=== PATIENT | male | born 1955 ===

== ENCOUNTER 2017-11-16 06:33 | Inpatient (IN) | payer BC ==
[2017-10-24 12:51] VITALS: BMI 29.0
--- NOTE | 2017-10-24 13:25 | PAT Medication Instructions ---
Service Date Oct 24, 2017. Current Home Medication List Acetaminophen (Tylenol), 2 TAB PO Q6 PRN for Pain Aspirin (Aspirin Ec), 81 MG PO QAM Atenolol/Chlorthalidone (Tenoretic 50 Mg/25 Mg), 1 TAB PO QAM Cyanocobalamin (Vitamin B-12), 1,000 MCG PO QAM Fish Oil ([place]-3), 1 CAP PO QAM Ibuprofen (Motrin), 600 MG PO Q6H PRN for Pain Multivitamin (Multivitamin), 1 TAB PO QAM Potassium (Potassium), 1 TAB PO QAM Medication Instructions For Your Scheduled Surgery - Check with surgeon for instructions: Ibuprofen (Motrin), 600 MG PO Q6H PRN for Pain - Hold the following medications 2 weeks prior to surgery: Fish Oil ([place]-3), 1 CAP PO QAM - Hold the following medications the morning of surgery: Cyanocobalamin (Vitamin B-12), 1,000 MCG PO QAM Multivitamin (Multivitamin), 1 TAB PO QAM Potassium (Potassium), 1 TAB PO QAM - Take the following medications the morning of surgery with a sip of water: Atenolol/Chlorthalidone (Tenoretic 50 Mg/25 Mg), 1 TAB PO QAM Acetaminophen (Tylenol), 2 TAB PO Q6 PRN for Pain (okay to take up to 4 hours prior to surgery if needed) Aspirin (Aspirin Ec), 81 MG PO QAM If you have any questions please call us at [phone] or [phone] or [phone]
[2017-10-24 14:21] LABS: BASO % 0.7 %; BASO ABS # 0.05 K/uL (0-0.2); EOS % 1.7 %; EOS ABS # 0.12 K/uL (0-0.5); HEMATOCRIT 40.7 % (42-52); HEMOGLOBIN 14.8 g/dL (14.0-18.0); IG# 0.01 K/uL (0.00-0.02); LYMPH % 22.1 %; LYMPH ABS # 1.55 K/uL (1.2-3.4); MEAN CELL VOLUME 85.3 fL (80-100); MEAN CORPUSCULAR HGB CONC 36.4 g/dl (32-36); MEAN PLATELET VOLUME 10.7 fL (7.4-10.4); MONO % 7.3 %; MONO ABS # 0.51 K/uL (0.11-0.59); NEUT % 68.1 %; NEUT ABS # 4.77 K/uL (1.4-6.5); PLATELET COUNT 239 K/uL (130-400); RED CELL DISTRIBUTION WIDTH CV 12.8 % (11.5-14.5); RED CELL DISTRIBUTION WIDTH SD 39.3 fL (36.4-46.3); WHITE BLOOD COUNT 7.01 K/uL (4.8-10.8)
--- NOTE | 2017-10-24 14:28 | DIAGNOSTIC IMAGING REPORT ---
CHEST 2 VIEWS ROUTINE CLINICAL HISTORY: Preoperative chest COMPARISON STUDY: No previous studies for comparison. FINDINGS: The cardiac and mediastinal contours are normal. There is no evidence of focal pulmonary consolidation. There is no evidence of failure. No pleural effusions are visualized.[ There is an azygos fissure. IMPRESSION: No active disease in the chest. Electronically signed by: Vijay Monson M.D. 10/24/2017 2:27 PM Dictated Date/Time: 10/24/2017 2:27 PM
[2017-10-24 14:32] LABS: CREATININE 1.06 mg/dl (0.60-1.40); POTASSIUM 3.2 mmol/L (3.5-5.1)
[~2017-11-16] VITALS: Ht 190.5 cm; Wt 107.9 kg
[2017-11-16] VITALS (10 sets, daily range): BP systolic 120–162; BP diastolic 72–91; PULSE 59–84; TEMP 36.4–37.2; O2SAT 95–100; Ht 190.5 cm; Wt 107.9 kg
[~2017-11-16 06:33] MED LIST: ACET-1256 PO; ASPI81TA28 PO; ATEN-171 PO; CEFAZOLIN 2000MG IV PUSH 10 ML IV SCH; CYAN10005 PO; IBUP600T44 PO; LACTATED RINGER'S 1000ML 1,000 ML IV SCH; MULT-506 PO; OMEG10007 PO; POTA99TA PO
[2017-11-16] MEDS ORDERED: DEXAMETHASONE SOD INJ 4 MG/ML VIAL ONE (08:17)
[2017-11-16] MEDS ORDERED: LIDOCAINE HCL 2% 2 ML VIAL (20MG/ML) ONE (08:17)
[2017-11-16] MEDS ORDERED: ONDANSETRON INJ 2 MG/ML 2 ML VIAL ONE (08:17)
[2017-11-16] MEDS ORDERED: NEOSTIGMINE METHYLSULFATE 1 MG/ML 10ML VIAL ONE (08:17)
[2017-11-16] MEDS ORDERED: PROPOFOL IV EMULSION 10 MG/ML 20 ML VIAL IV ONE (08:17)
[2017-11-16] MEDS ORDERED: GLYCOPYRROLATE INJ 0.2 MG/ML VIAL ONE (08:17)
[2017-11-16] MEDS ORDERED: MIDAZOLAM HCL 1 MG/ML 2ML VIAL ONE (08:17)
[2017-11-16] MEDS ORDERED: FENTANYL CITRATE INJ 50 MCG/1 ML 2 ML VIAL ONE (08:17)
--- NOTE | 2017-11-16 08:41 | History & Physical Bridge Note ---
H&P Re-Evaluation Bridge Note: I have examined the patient, reviewed the History & Physical and in the interval since the performance of the History & Physical I have noted the following changes of clinical significance: No changes noted
--- NOTE | 2017-11-16 08:42 | History and Physical ---
History & Physical Date Nov 16, 2017. Chief Complaint Back and leg pain History of Present Illness The patient is a 62 year old male with complaints of back and leg pain Additional History Hepatic Disease: No Endocrine Disorder: No Kidney Disease: No Hypertension: Yes Heart Disease: No Bleeding Tendencies: No Infectious Diseases: No Allergies Coded Allergies: No Known Allergies (Unverified , 11/16/17) Home Medications Scheduled Aspirin (Aspirin Ec), 81 MG PO QAM Atenolol/Chlorthalidone (Tenoretic 50 Mg/25 Mg), 1 TAB PO QAM Cyanocobalamin (Vitamin B-12), 1,000 MCG PO QAM Fish Oil ([place]-3), 1 CAP PO QAM Multivitamin (Multivitamin), 1 TAB PO QAM Potassium (Potassium), 1 TAB PO QAM Scheduled PRN Acetaminophen (Tylenol), 2 TAB PO Q6 PRN for Pain Ibuprofen (Motrin), 600 MG PO Q6H PRN for Pain Physical Examination Skin: warm/dry, no rash Eyes: normal inspection, EOMI, sclerae normal ENT: normal ENT inspection, pharynx normal Head: normocephalic, atraumatic Neck: supple, no adenopathy, trachea midline Respiratory/Chest: lungs clear, normal breath sounds, no respiratory distress Cardiovascular: regular rate, rhythm, no edema, no murmur Abdomen / GI: normal bowel sounds, non tender Back: normal inspection Extremities: normal inspection, normal range of motion Neurologic/Psych: no motor/sensory deficits, alert, normal reflexes, oriented x 3 Diagnosis Lumbar spinal stenosis Plan of Treatment L3 4 L4 5 lumbar decompression and fusion
[2017-11-16] MEDS ORDERED: BACITRACIN 50000 UNIT VIAL ONE (08:59)
[2017-11-16] MEDS ORDERED: BUPIVACAINE/EPINEPHRINE 0.25% 1:200,000 30 ML VIAL ONE (09:00)
[2017-11-16] MEDS ORDERED: ATROPINE SULFATE 0.1 MG/ML 5ML SYR IV PRN (09:15)
[2017-11-16] MEDS ORDERED: LABETALOL HCL IV 5 MG/ML 20ML IV PRN (09:15)
[2017-11-16] MEDS ORDERED: HYDROmorphone INJ 2 MG/ML SYR/VIAL IV PRN (09:15)
[2017-11-16] MEDS ORDERED: ONDANSETRON INJ 2 MG/ML 2 ML VIAL IV PRN ×2 (09:15→11:45)
[2017-11-16] MEDS ORDERED: HYDROmorphone INJ 2 MG/ML SYR/VIAL ONE (10:01)
[2017-11-16] MEDS ORDERED: ROCURONIUM BROMIDE 10 MG/ML 5 ML VIAL IV ONE (10:02)
[2017-11-16] MEDS ORDERED: FLOSEAL HEMOSTATIC MATRIX 10ML TOP ONE (11:33)
[2017-11-16] MEDS ORDERED: SODIUM CHLORIDE 0.9% 1000ML 1,000 ML IV SCH (11:38)
--- NOTE | 2017-11-16 11:38 | [facility] Operative Report ---
Operative Report Operative Date Nov 16, 2017. Pre-Operative Diagnosis Lumbar spinal stenosis Post-Operative Diagnosis same as preop Procedure(s) Performed #1 lumbar decompression medial facetectomies foraminotomies L3 4 L4 5. #2 posterior spinal fusion L3 4 L4 5. #3 placement posterior segmental transportation L3 4 L4 5. #4 interbody fusion L3 4 L4 5. #5 placement peek Cage 14 x 26 mm at L3 4 and L4 5. #6 placement locally harvested morcellized autograft in the posterior lateral gutters. #7 placement infuse collagen sponge commode Master graft in the posterior gutters and ostial amp bone graft in the interbody spaces. Surgeon Dr. Penaloza Contestant Coordinator Surgeon(s) Alexander Robledo PA-C Findings Severe spinal stenosis Specimens none Description of Procedure Patient was met with preoperatively case discussed all questions addressed. After informed consent obtained patient was taken back to the operative suite underwent intubation placed in a prone position the Alexys table on top of the Trevor frame. All bony prominences well-padded eyes inspected to ensure no external pressure placed upon them. This point the lumbar spine is prepped and draped in normal sterile fashion. Sharp dissection with the assistance of Bovie cautery was performed onto an exposing the lamina and transverse processes of L3 L4-L5 bilaterally. From a caudal to cephalad fashion complete laminectomy of L4 and L3 was performed addressing severe lateral recess and foraminal disease. Pedicle screws then placed in L3 L4-L5 bilaterally with assistance of fluoroscopy and the probably size gage placed. Through a trans- foraminal approach on the right a complete discectomy of L4 5 was performed and plate created to subcortical bleeding bone and a 14 x 26 mm peek cage filled with ostial amp bone graft tapped in position. Then proceeded L3 40 again through a transforaminal approach a right complete discectomy performed and plate created to subcortical bleeding bone and a 14 x 26 mm peek cage filled with ostial amp bone graft tapped in position. The rods were then locked and final position bilaterally. The transverse processes of L3 L4-L5 burred to subcortical bleeding bone. Infuse collagen sponge mask graft locally harvested morcellized autograft placed in the posterior lateral gutters. 15 round LOC drain inserted. Incision then closed with 1 Vicryl fascia 2-0 Vicryl subcutaneous tediously 4 Monocryl for Desiree closure Steri-Strips sterile dressings placed. Patient we can take PACU stable condition. Please note Zander record present at the entire procedure involved in patient positioning complex portions of the surgery and final skin closure. I attest to the content of the Intraoperative Record and any orders documented therein. Any exceptions are noted below.
--- NOTE | 2017-11-16 11:43 | DIAGNOSTIC IMAGING REPORT ---
LUMBAR SPINE 2 OR 3 VIEW CLINICAL HISTORY: L3-L5 lumbar decompression and fusion. COMPARISON STUDY: No previous studies for comparison. Fluoroscopy time: 23.9 seconds. FINDINGS: 2 fluoroscopic images demonstrate L3-L4 and L4-L5 discectomies with interbody spacer placement. There is a posterior decompression. There are bilateral pedicle screws at the L3, L4 and L5 levels with interconnecting rods. Hardware is intact. IMPRESSION: Fluoroscopic images demonstrating L3-L4 and L4-L5 discectomies with L3-L5 bilateral pedicle screw fusion. Electronically signed by: Byron Pugh M.D. 11/16/2017 11:42 AM Dictated Date/Time: 11/16/2017 11:40 AM
[2017-11-16] MEDS ORDERED: LORAZEPAM INJ 0.5 MG in SYRINGE 0 ML IV PRN (11:45)
[2017-11-16] MEDS ORDERED: DO NOT ADMINISTER PNEUMOCOCCAL VACCINE PRN (11:45)
[2017-11-16] MEDS ORDERED: ALUMINUM/MAGNESIUM SUSP 30 ML UDC PO PRN (11:45)
[2017-11-16] MEDS ORDERED: PROMETHAZINE HCL INJ 12.5 MG in SODIUM CHLORIDE 0.9% 50ML 50 ML IV PRN (11:45)
[2017-11-16] MEDS ORDERED: FAMOTIDINE 20 MG TAB PO PRN (11:45)
[2017-11-16] MEDS ORDERED: hydrOXYzine HCL 25 MG TAB PO PRN (11:45)
[2017-11-16] MEDS ORDERED: ACETAMINOPHEN 500 MG TAB PO PRN ×2 (11:45)
[2017-11-16] MEDS ORDERED: METOCLOPRAMIDE HCL INJ 5 MG/ML 2 ML VIAL IV PRN (11:45)
[2017-11-16] MEDS ORDERED: LORAZEPAM 0.5 MG TAB PO PRN (11:45)
[2017-11-16] MEDS ORDERED: NALOXONE HCL 0.4 MG/1 ML VIAL/CARP IV PRN ×2 (11:45)
[2017-11-16] MEDS ORDERED: MAGNESIUM HYDROXIDE SUSP 30 ML UDC PO PRN (11:45)
[2017-11-16] MEDS ORDERED: BISACODYL 10 MG SUPP PR PRN (11:45)
[2017-11-16] MEDS ORDERED: DO NOT ADMINISTER FLU VACCINE PRN (11:45)
[2017-11-16] MEDS ORDERED: SOD PHOSPHATE/SOD BIPHOSPHATE ENEMA 132 ML BTL PR PRN (11:45)
[2017-11-16] MEDS ORDERED: ACETAMINOPHEN IV 100 ML IV PRN (11:45)
[2017-11-16] MEDS ORDERED: HYDROmorphone HCL 0.5MG/ML 50 ML CASSETTE ONE (12:02)
--- NOTE | 2017-11-16 14:29 | Anesthesiology Progress Note ---
Anesthesia Post Op Note Date & Time Nov 16, 2017 at 14:29 Vital Signs Vital Signs Past 12 Hours Date Time Temp Pulse Resp B/P (MAP) Pulse Ox O2 Delivery O2 Flow Rate FiO2 11/16/17 13:45 36.4 59 16 128/82 (97) 98 Nasal Cannula 4.0 11/16/17 13:15 74 16 155/82 (106) 98 4.0 11/16/17 12:45 Nasal Cannula 4.0 11/16/17 12:45 98 Nasal Cannula 4.0 11/16/17 12:45 36.9 69 16 146/80 (102) 98 Nasal Cannula 4.0 11/16/17 12:35 36.3 69 18 149/83 98 Nasal Cannula 4 11/16/17 12:25 64 12 127/67 98 Nasal Cannula 4 11/16/17 12:15 59 10 127/67 98 Oxymask 10 11/16/17 12:05 62 18 122/68 98 Oxymask 10 11/16/17 11:58 36.7 67 16 123/62 98 Oxymask 10 11/16/17 07:01 36.9 64 18 155/91 99 Room Air Notes Mental Status: alert / awake / arousable, participated in evaluation Pt Amnestic to Procedure: Yes Nausea / Vomiting: adequately controlled Pain: adequately controlled Airway Patency, RR, SpO2: stable & adequate BP & HR: stable & adequate Hydration State: stable & adequate Anesthetic Complications: no major complications apparent
[2017-11-16] MEDS: HYDROmorphone HCL 0.5MG/ML 50 ML CASSETTE IV PRN ×2 (14:54→23:16)
[2017-11-16] MEDS: SODIUM CHLORIDE 0.9% 1000ML 1,000 ML IV SCH ×2 (16:03→20:10)
[2017-11-16] MEDS ORDERED: NURSING DECISION MEDICATION ORDER SCH (17:00)
[2017-11-16] MEDS: CEFAZOLIN IV 2,000 MG in SYRINGE 0 ML IV SCH (17:52)
[2017-11-16] MEDS ORDERED: COUGH DROP (SUGAR FREE) LOZ 24 LOZ/1 BOX PO PRN (18:00)
[2017-11-16] MEDS: DOCUSATE SODIUM/SENNA 50/8.6MG TAB PO SCH (20:39)
[2017-11-17] MEDS: CEFAZOLIN IV 2,000 MG in SYRINGE 0 ML IV SCH (00:43)
[2017-11-17] MEDS: SODIUM CHLORIDE 0.9% 1000ML 1,000 ML IV SCH (02:15)
[2017-11-17 04:09] VITALS: BP 136/69; PULSE 77; TEMP 36.8; O2SAT 96
[2017-11-17] MEDS ORDERED: HYDROmorphone INJ 1 MG/ML SYR IV PRN (06:00)
[2017-11-17] MEDS ORDERED: DC PCA ONE (06:00)
[2017-11-17] MEDS ORDERED: NURSING DECISION MEDICATION ORDER SCH ×2 (07:00→12:00)
[2017-11-17] MEDS: OXYCODONE HCL IR 5 MG TAB (IMMEDIATE RELEASE) PO PRN ×4 (07:04→22:06)
[2017-11-17 07:16] LABS: BASO % 0.1 %; BASO ABS # 0.02 K/uL (0-0.2); EOS % 0.2 %; EOS ABS # 0.03 K/uL (0-0.5); HEMATOCRIT 34.5 % (42-52); HEMOGLOBIN 12.3 g/dL (14.0-18.0); IG# 0.04 K/uL (0.00-0.02); LYMPH % 10.2 %; LYMPH ABS # 1.38 K/uL (1.2-3.4); MEAN CORPUSCULAR HEMOGLOBIN 30.7 pg (25-34); MEAN CORPUSCULAR HGB CONC 35.7 g/dl (32-36); MEAN PLATELET VOLUME 10.2 fL (7.4-10.4); MONO % 10.1 %; MONO ABS # 1.36 K/uL (0.11-0.59); NEUT % 79.1 %; NEUT ABS # 10.67 K/uL (1.4-6.5); PLATELET COUNT 185 K/uL (130-400); RED CELL DISTRIBUTION WIDTH SD 40.9 fL (36.4-46.3)
[2017-11-17 07:20] VITALS: BP 160/73; PULSE 79; TEMP 36.7; O2SAT 98
[2017-11-17 07:45] LABS: CALCIUM 8.1 mg/dl (8.5-10.1); CREATININE 0.86 mg/dl (0.60-1.40); POTASSIUM 2.7 mmol/L (3.5-5.1)
[2017-11-17] MEDS ORDERED: NON-FORMULARY MEDICATION (Potassium 1 TAB) PO SCH (09:00)
[2017-11-17] MEDS: ASPIRIN 81 MG ECTAB PO SCH (09:02)
[2017-11-17] MEDS: CHLORTHALIDONE 25 MG TAB PO SCH (09:03)
[2017-11-17] MEDS ORDERED: COUGH DROP (SUGAR FREE) LOZ 24 LOZ/1 BOX PO PRN (12:30)
[2017-11-17] MEDS ORDERED: RXC5 PO (13:09)
--- NOTE | 2017-11-17 13:09 | Discharge Instructions ---
Discharge Instructions Date of Service Nov 17, 2017. Admission Reason for Admission: Spinal Stenosis Discharge Discharge Diagnosis / Problem: lumbar stenosis Discharge Goals Goal(s): Improve function Activity Recommendations Activity Limitations: per Instructions/Follow-up section . Instructions / Follow-Up Instructions / Follow-Up ACTIVITY RECOMMENDATIONS: SELF CARE INSTRUCTIONS AFTER THORACIC/LUMBAR FUSIONS 1. You may walk to your tolerance. It is good exercise for your legs and back. Expect some back and intermittent leg aches and pains. 2. You may perform "counter-top" level activities (make a sandwich, neetu with a project, etc.). 3. No bending or lifting of more than 10 pounds or back twisting of any nature (roll like a log when turning in bed). 4. You may ride in a car for 20-30 minutes at a time. No driving until after your first visit with your doctor. 5. Frequent changes of position and restricting sitting to 30 minutes at a time will help limit the amount of back spasms and stiffness you may experience. 6. You may discontinue the use of ambulatory aids (cane, crutches, etc.) once your strength and confidence allow. 7. You may balance and hairspring assembler the shower and let water strike your incision when you arrive home at least once daily. Do not take a tub bath, sit in a hot tub or go into a swimming pool until after your first recheck in the office. SPECIAL CARE INSTRUCTIONS: VERY IMPORTANT TO READ AND REVIEW A. Your surgical incision has been closed with a cosmetic suture under the skin that will dissolve in about 6 weeks. In 14 days, you can use a pair of clean scissors and cut the suture that is left outside of the skin at the ends of your incision. 1. The small skin tapes can be removed 7 days after surgery if they have not fallen off by that point. 2. You may keep the wound open to air as much as possible to promote healing after post-op day number 5 unless told otherwise by your doctor. 3. If you think the wound looks like it is becoming infected (redness or worsening drainage) and/or you are experiencing fever, chill or worsening back pain and muscle spasms, contact the office so that we may evaluate you as soon as possible. B. Complications are uncommon, but please contact us if you have any signs or symptoms of: 1. wound infection (fever higher than 102.5 degrees F, redness, separation of wound, drainage, or increasing pain from the incision) 2. blood clots in legs (pain, swelling, redness and warmth in legs) 3. urinary tract infection (fever higher than 102.5 degrees F, burning upon urination or increased frequency of urination) 4. nerve problems (inability to walk on your toes or heels, numbness, loss of bowel or bladder control) 5. any other symptoms that concern you C. Please call the office at if you have any concerns or questions about your operation or recovery. D. No smoking! Smoking drastically decreases the chance of a solid fusion. E. Do not take any anti-inflammatory medications (Indocin, Advil, Motrin, Aspirin, Naprosyn, etc.) as these may inhibit the chance of a solid fusion. Tylenol is okay to take for pain. MANAGING PAIN AFTER SPINAL SURGERY 1. Narcotic medication is intended for short-term use and will be provided for surgical pain. Surgical pain usually lasts for a period of 4-6 weeks. Narcotic medication includes Percocet, Vicodin, Darvocet, Tylenol #3 or Lortab. 2. Longer-term pain is more appropriately treated with non-narcotic medication such as Tylenol ES. 3. Muscle spasm is not appropriately treated with narcotics. Muscle relaxers such as Soma, Flexeril or Skelaxin can be used along with Tylenol ES. 4. Remember that we all live with some "aches and pains". This is not unusual or uncommon after an injury or as we get older. a. Back pain is expected and may include muscle spasms for 4 to 6 weeks after surgery. The pain should gradually improve. If the pain worsens for no apparent reason, please contact the office. b. Intermittent leg pain may also be experienced and should not be concerned about unless it worsens for no apparent reason. If so, please contact the office. 5. We will provide appropriate medication within the normal guidelines of their prescribed use. We will also be very cautious and aware of potential abuse and extended duration of patients' medication needs. a. Pain medications are for your comfort and to assist with sleep and rest so that the tissue can heal. They are not provided in order to return to normal activity and should not be used through the day. To do so or worsening pain at night can result from ongoing tissue damage and development of tolerance to the prescribed medicine. 6. Please allow 2-3 days to process refills. Prescriptions will not be mailed but must be picked up at the office. FOLLOW UP VISIT: Keep your scheduled follow-up appointment. Any questions, please call the office at . Current Hospital Diet Patient's current hospital diet: Regular Diet Discharge Diet Recommended Diet: Regular Diet Procedures Procedures Performed: #1 lumbar decompression medial facetectomies foraminotomies L3 4 L4 5. #2 posterior spinal fusion L3 4 L4 5. #3 placement posterior segmental transportation L3 4 L4 5. #4 interbody fusion L3 4 L4 5. #5 placement peek Cage 14 x 26 mm at L3 4 and L4 5. #6 placement locally harvested morcellized autograft in the posterior lateral gutters. #7 placement infuse collagen sponge commode Master graft in the posterior gutters and ostial amp bone graft in the interbody spaces. Pending Studies Studies pending at discharge: no Medical Emergencies . Who to Call and When: Medical Emergencies: If at any time you feel your situation is an emergency, please call 911 immediately. . Non-Emergent Contact Non-Emergency issues call your: Primary Care Provider . "Provider Documentation" section prepared by Andrew Penaloza. . VTE Core Measure Inpt VTE Proph given/why not?: Trish Zendejas, GIG[employer]
[2017-11-17 13:54] VITALS: BP 144/66; PULSE 79
--- NOTE | 2017-11-17 13:55 | Progress Note ---
Progress Note Date of Service Nov 17, 2017. Progress Note Patient's postop day #1. Back pain is controlled. Leg pain improved. Vital signs are stable. Exam is good strength testing appears comfortable. Assessment status post lumbar decompression fusion replant this time will continue physical therapy advances Pamela munoz anticipate discharge home Sunday.
[2017-11-17 15:20] VITALS: BP 133/73; PULSE 76; TEMP 37.3; O2SAT 99
[2017-11-17] MEDS: KETOROLAC TROMETHAMINE 30 MG/ML VIAL IV PRN (15:55)
[2017-11-17] MEDS: DOCUSATE SODIUM/SENNA 50/8.6MG TAB PO SCH (20:43)
[2017-11-17 23:05] VITALS: BP 126/69; PULSE 76; TEMP 37.3; O2SAT 93
[2017-11-18] MEDS: KETOROLAC TROMETHAMINE 30 MG/ML VIAL IV PRN ×2 (01:28→09:42)
[2017-11-18] MEDS: POLYETHYLENE (MIRALAX) 17 GM PACK PO SCH ×3 (06:07→18:00)
[2017-11-18 07:06] VITALS: BP 148/72; PULSE 77; TEMP 36.9; O2SAT 97
[2017-11-18] MEDS ORDERED: MAGNESIUM CITRATE 296 ML/BTL PO PRN (08:30)
[2017-11-18] MEDS ORDERED: NURSING VERBAL MED ORDER ONE ×2 (09:30→23:00)
[2017-11-18] MEDS: ASPIRIN 81 MG ECTAB PO SCH (09:37)
[2017-11-18] MEDS: CHLORTHALIDONE 25 MG TAB PO SCH (09:37)
[2017-11-18] MEDS: OXYCODONE HCL IR 5 MG TAB (IMMEDIATE RELEASE) PO PRN ×4 (11:56→23:20)
[2017-11-18] MEDS: POTASSIUM CHLORIDE 20 MEQ TABCR PO SCH (11:57)
[2017-11-18 15:02] VITALS: BP 146/72; PULSE 72; TEMP 36.8; O2SAT 99
[2017-11-18] MEDS: DOCUSATE SODIUM/SENNA 50/8.6MG TAB PO SCH (20:30)
[2017-11-18 23:20] VITALS: BP 115/71; PULSE 78; TEMP 36.9; O2SAT 94
[2017-11-19] MEDS: OXYCODONE HCL IR 5 MG TAB (IMMEDIATE RELEASE) PO PRN ×2 (04:35→10:50)
[2017-11-19 06:53] VITALS: BP 121/68; PULSE 71; TEMP 36.8; O2SAT 96
[2017-11-19 07:20] VITALS: O2SAT 96
[2017-11-19] MEDS: KETOROLAC TROMETHAMINE 30 MG/ML VIAL IV PRN (07:29)
--- NOTE | 2017-11-19 08:00 | ORTHOPEDIC PROGRESS NOTE ---
DATE: 11/18/2017 SUBJECTIVE: He is postoperative day 2 lumbar decompression and instrumented fusion L3 through L5. His only complaint today is abdominal discomfort. He is passing modest flatus. No bowel movement yet. LOC drain output last shift was 60 mL. There is a total 375 mL over the past 24 hours. He has no radicular leg pain. Back pain is controlled. Yesterday in physical therapy, he was ambulating roughly 150 feet. PHYSICAL EXAMINATION: GENERAL: He is sitting on the edge of the bed. LOWER EXTREMITIES: Neurovascularly intact. Calves are soft and nontender. Lumbar dressing is clean, dry and intact. ASSESSMENT: Postoperative day 2 lumbar decompression with instrumented fusion L3 through L5. PLAN: We will continue with physical therapy/ambulation today. DVT prophylaxis in the form of TEDs and SCDs. Continue with aggressive bowel regimen. Anticipate discharge home tomorrow.
--- NOTE | 2017-11-19 08:06 | Anesthesiology Progress Note ---
Anesthesia Post Op Note Date & Time Nov 19, 2017 at 08:05 Vital Signs Vital Signs Past 12 Hours Date Time Temp Pulse Resp B/P (MAP) Pulse Ox O2 Delivery O2 Flow Rate FiO2 11/19/17 07:20 96 Room Air 11/19/17 06:53 36.8 71 16 121/68 (85) 96 Room Air 11/18/17 23:21 Room Air 11/18/17 23:20 36.9 78 18 115/71 (86) 94 Room Air Notes Mental Status: alert / awake / arousable, participated in evaluation Pt Amnestic to Procedure: Yes Nausea / Vomiting: adequately controlled Pain: adequately controlled Airway Patency, RR, SpO2: stable & adequate BP & HR: stable & adequate Hydration State: stable & adequate Anesthetic Complications: no major complications apparent
[2017-11-19] MEDS: ASPIRIN 81 MG ECTAB PO SCH (09:03)
[2017-11-19] MEDS: CHLORTHALIDONE 25 MG TAB PO SCH (09:04)
[2017-11-19] MEDS: POTASSIUM CHLORIDE 20 MEQ TABCR PO SCH (09:04)
[2017-11-19 09:41] VITALS: BP 121/68; PULSE 71; TEMP 36.8; O2SAT 96
--- NOTE | 2017-11-19 11:36 | Discharge Summary ---
Orthopedic Discharge Summary Admission Date/Reason Nov 16, 2017 at 08:47 Spinal Stenosis. Discharge Date/Disposition Nov 19, 2017 Home Diagnosis Principal Diagnosis: Lumbar spinal stenosis Admission Physical Exam As per Admitting History & Physical. Hospital Course Patient underwent lumbar decompression fusion tolerated as well as taken to the orthopedic floor postop we. Postoperative day #1 is up and amatory progressed nicely through postoperative day #2 subsequently postop day #3 he was discharged home. Discharge orders and instructions found on the chart for further review. Discharge Instructions Please refer to the electronic Patient Visit Report (Discharge Instructions) for additional information.
== END 2017-11-19 11:30 | disposition home or self-care (01) | DRG 455 ==
LOC: C.ACU 06:33 → C.3E 08:47 → ENRESERV 12:20
PROVIDERS: ADMIT Orthopaedic Surgery Orthopaedic Surgery of the Spine; ATTEND Orthopaedic Surgery Orthopaedic Surgery of the Spine
PROC: 0SG1071 Fusion of 2 or more Lumbar Vertebral Joints with Autologous Tissue Substitute, Posterior Approach, Posterior Column, Open Approach (ICD-10-PCS; principal; 2017-11-16 09:05)
PROC: 0ST20ZZ Resection of Lumbar Vertebral Disc, Open Approach (ICD-10-PCS; principal; 2017-11-16 09:05)
PROC: 0SG10AJ Fusion of 2 or more Lumbar Vertebral Joints with Interbody Fusion Device, Posterior Approach, Anterior Column, Open Approach (ICD-10-PCS; principal; 2017-11-16 09:05)
DX: M48.00 Spinal stenosis, site unspecified (principal); I10 Essential (primary) hypertension; Z79.899 Other long term (current) drug therapy; Z79.82 Long term (current) use of aspirin